=== PATIENT | male | born 1990 | race Two or more races ===

== ENCOUNTER 2021-07-31 21:23 | Emergency (ER) | payer OTHER ==
[~2021-07-31] VITALS: Ht 167.6 cm; Wt 72.7 kg
[2021-07-31 23:03] VITALS: BP 121/80
== END 2021-07-31 23:14 | disposition home or self-care (01) ==
LOC: EMS 21:27
DX: F32.9 Major depressive disorder, single episode, unspecified (principal)
CPT/HCPCS: 99284; Z7502

== ENCOUNTER 2021-08-01 03:42 | Inpatient (IN) | payer OTHER ==
[~2021-08-01] VITALS: Ht 167.6 cm; Wt 72.1 kg
[2021-08-01 08:53] LABS: EOSINOPHILS % (AUTO) 1.6 % (1.0-6.0); HEMATOCRIT 43.9 % (41-53); LYMPHOCYTES # (AUTO) 2.3 K/uL (1.0-4.8); LYMPHOCYTES % (AUTO) 42.8 % (22.0-44.0); MEAN CORPUSCULAR HEMOGLOBIN 31.5 pg (26.0-34.0); MEAN CORPUSCULAR HGB CONC 34.3 G/dL (31.0-37.0); MEAN CORPUSCULAR VOLUME 92 fL (80-100); MONOCYTES # (AUTO) 0.5 K/uL (0.1-1.0); MONOCYTES % (AUTO) 9.5 % (2.0-9.0); NEUTROPHILS # (AUTO) 2.4 K/uL (1.8-7.7); NEUTROPHILS % (AUTO) 45.1 % (40.0-70.0); PLATELET COUNT (AUTO) 274 K/uL (150-450); RED BLOOD CELL COUNT(AUTO) 4.77 MIL/uL (4.50-5.90); RED CELL DISTRIBUTION WIDTH 13.8 % (11.5-14.5)
[2021-08-01 08:58] LABS: ANION GAP 6 mmol/L (8-16); CALCIUM, TOTAL 9.1 mg/dL (8.8-10.5); CARBON DIOXIDE 29 mmol/L (22-29); CHLORIDE 104 mmol/L (98-107); CREATININE 0.74 mg/dL (0.60-1.30); GLOMERULAR FILTR. RATE CALC > 60 mL/min (>60); GLUCOSE,RANDOM 93 mg/dL (70-110); POTASSIUM 4.1 mmol/L (3.5-5.1); SODIUM SERUM 139 mmol/L (136-145); UREA NITROGEN, BLOOD 15 mg/dL (7-18)
[2021-08-01 09:04] LABS: ALANINE AMINOTRANSFERASE 38 U/L (12-78); ALBUMIN 3.8 g/dL (3.4-5.0); ALKALINE PHOSPHATASE 83 U/L (46-116); ASPARTATE AMINOTRANSFERASE 27 U/L (15-37); BILIRUBIN,TOTAL 0.4 mg/dL (0.1-1.0); TOTAL PROTEIN, SERUM 7.6 g/dL (6.4-8.2)
[2021-08-01 12:00] LABS: COVID AG,FIA SOURCE NASOPHARYNGEAL
[2021-08-01 12:35] LABS: AMPHET/METH SCREEN,URINE NEGATIVE (NEGATIVE); BARBITURATE SCREEN, URINE NEGATIVE (NEGATIVE); BENZODIAZEPINES SCREEN,URINE NEGATIVE (NEGATIVE); CANNABINOID SCREEN,URINE POSITIVE (NEGATIVE); COCAINE SCREEN,URINE NEGATIVE (NEGATIVE); METHADONE SCREEN, URINE NEGATIVE (NEGATIVE); OPIATE SCREEN,URINE NEGATIVE (NEGATIVE)
[2021-08-01 12:37] LABS: PHENCYCLIDINE SCREEN,URINE NEGATIVE (NEGATIVE)
[2021-08-01 16:33] VITALS: BP 119/76
[2021-08-01 19:34] VITALS: BP 119/59
[2021-08-01] MEDS: MELATONIN 3 MG TABLET PO PRN (20:56)
[2021-08-01] MEDS ORDERED: ALBUTEROL SULFATE 2.5 MG/0.5 ML NEB SOLUTION NEB PRN (21:15)
[2021-08-01] MEDS ORDERED: ONDANSETRON HCL 4 MG/2 ML VIAL IVP PRN (21:15)
[2021-08-01] MEDS ORDERED: BISACODYL 10 MG RECTAL RECTAL SUPPOSITORY PR PRN (21:15)
[2021-08-01] MEDS ORDERED: MORPHINE SULFATE 2 MG/ML SYRINGE IVP PRN (21:15)
[2021-08-01] MEDS ORDERED: MAGNESIUM HYDROXIDE SUSPENSION 30 ML UDCUP PO PRN (21:15)
[2021-08-01] MEDS ORDERED: IPRATROPIUM BROMIDE 0.5 MG/2.5 ML NEB SOLUTION NEB PRN (21:15)
[2021-08-02] MEDS: HYDROCODONE/ACETAMINOPHEN 5-325 MG TABLET PO PRN ×3 (00:33→17:29)
[2021-08-02] MEDS: ZOLPIDEM TARTRATE 5 MG TABLET PO PRN (01:35)
[2021-08-02] MEDS: HEPARIN SODIUM,PORCINE 5,000 UNITS/ML VIAL SQ SCH ×3 (01:35→17:25)
[2021-08-02 03:59] VITALS: BP 103/61
[2021-08-02 08:05] VITALS: BP 123/71
[2021-08-02] MEDS ORDERED: PANTOPRAZOLE SODIUM 40 MG/VIAL IVP SCH (09:00)
[2021-08-02] MEDS: DOCUSATE SODIUM 100 MG CAPSULE PO SCH ×2 (09:43→19:52)
[2021-08-02 12:53] VITALS: BP 93/67
[2021-08-02 16:06] VITALS: BP 130/96
[2021-08-02] MEDS: ACETAMINOPHEN 325 MG TABLET PO PRN (19:53)
[2021-08-02] MEDS: OLANZapine 10 MG TABLET PO SCH (19:53)
[2021-08-02] MEDS: MELATONIN 3 MG TABLET PO PRN (20:02)
[2021-08-02 20:38] VITALS: BP 125/77
[2021-08-03] MEDS: HEPARIN SODIUM,PORCINE 5,000 UNITS/ML VIAL SQ SCH ×4 (00:11→23:16)
[2021-08-03 05:00] VITALS: BP 119/66
[2021-08-03] MEDS: DOCUSATE SODIUM 100 MG CAPSULE PO SCH ×2 (08:16→19:59)
[2021-08-03] MEDS: PANTOPRAZOLE SODIUM 40 MG DR TABLET PO SCH (08:16)
[2021-08-03] MEDS: OLANZapine 10 MG TABLET PO SCH ×2 (08:16→19:59)
[2021-08-03 08:30] VITALS: BP 122/93
[2021-08-03] MEDS: ACETAMINOPHEN 325 MG TABLET PO PRN ×2 (12:27→20:00)
[2021-08-03 15:41] VITALS: BP 107/68
[2021-08-03 19:45] VITALS: BP 113/71
[2021-08-03] MEDS: MELATONIN 3 MG TABLET PO PRN (20:00)
[2021-08-04 04:40] VITALS: BP 112/68
[2021-08-04] MEDS: ACETAMINOPHEN 325 MG TABLET PO PRN ×3 (05:18→23:42)
[2021-08-04 07:34] VITALS: BP 113/65
[2021-08-04] MEDS: DOCUSATE SODIUM 100 MG CAPSULE PO SCH ×2 (08:01→19:54)
[2021-08-04] MEDS: HEPARIN SODIUM,PORCINE 5,000 UNITS/ML VIAL SQ SCH ×3 (08:02→23:42)
[2021-08-04] MEDS: PANTOPRAZOLE SODIUM 40 MG DR TABLET PO SCH (08:02)
[2021-08-04] MEDS: OLANZapine 10 MG TABLET PO SCH ×2 (08:02→19:54)
[2021-08-04 16:00] VITALS: BP 121/90
[2021-08-04] MEDS ORDERED: ONDANSETRON HCL 4 MG TABLET PO PRN (16:45)
[2021-08-04] MEDS: HYDROCODONE/ACETAMINOPHEN 5-325 MG TABLET PO PRN (19:58)
[2021-08-04] MEDS: ZOLPIDEM TARTRATE 5 MG TABLET PO PRN (19:58)
[2021-08-04 20:35] VITALS: BP 132/81
[2021-08-05 05:30] VITALS: BP 125/77
[2021-08-05] MEDS: OLANZapine 10 MG TABLET PO SCH ×2 (07:50→19:43)
[2021-08-05] MEDS: PANTOPRAZOLE SODIUM 40 MG DR TABLET PO SCH (07:50)
[2021-08-05] MEDS: DOCUSATE SODIUM 100 MG CAPSULE PO SCH ×2 (07:50→19:43)
[2021-08-05] MEDS: HEPARIN SODIUM,PORCINE 5,000 UNITS/ML VIAL SQ SCH ×2 (07:51→17:11)
[2021-08-05] MEDS: HYDROCODONE/ACETAMINOPHEN 5-325 MG TABLET PO PRN ×2 (08:27→18:28)
[2021-08-05 08:57] VITALS: BP 142/98
[2021-08-05 13:25] VITALS: BP 135/71
[2021-08-05] MEDS ORDERED: OLAN10TA74 PO (15:13)
[2021-08-05 17:45] VITALS: BP 144/88
== END 2021-08-05 20:30 | DRG 885 ==
LOC: EMS 03:43 → 6S 14:38
PROVIDERS: ADMIT Hospitalist; ATTEND Hospitalist
DX: F20.0 Paranoid schizophrenia (principal); R45.851 Suicidal ideations; F12.90 Cannabis use, unspecified, uncomplicated; F32.A Depression, unspecified; F17.210 Nicotine dependence, cigarettes, uncomplicated; Z20.822 Contact with and (suspected) exposure to COVID-19; F99 Mental disorder, not otherwise specified
CPT/HCPCS: 80053; 85025; 99285; G0480; J1644

== ENCOUNTER 2021-09-30 00:56 | Inpatient (IN) | payer OTHER ==
[~2021-09-30] VITALS: Ht 167.6 cm; Wt 78.2 kg
[~2021-09-30 00:56] MED LIST: OLAN10TA74 PO
[2021-09-30] MEDS ORDERED: BUSP10TA23 PO (01:32)
[2021-09-30] MEDS ORDERED: DIVA-80 PO (01:32)
[2021-09-30] MEDS ORDERED: OLAN10TA74 PO ×2 (01:33)
[2021-09-30 01:38] LABS: BASOPHILS % (AUTO) 0.6 % (0.0-2.0); HEMATOCRIT 39.7 % (41-53); HEMOGLOBIN 13.3 g/dL (13.5-17.5); LYMPHOCYTES # (AUTO) 1.8 K/uL (1.0-4.8); MEAN CORPUSCULAR HEMOGLOBIN 30.9 pg (26.0-34.0); MEAN CORPUSCULAR HGB CONC 33.5 G/dL (31.0-37.0); MEAN CORPUSCULAR VOLUME 92 fL (80-100); MONOCYTES # (AUTO) 0.5 K/uL (0.1-1.0); NEUTROPHILS # (AUTO) 3.2 K/uL (1.8-7.7); NEUTROPHILS % (AUTO) 57.4 % (40.0-70.0); PLATELET COUNT (AUTO) 212 K/uL (150-450); RED CELL DISTRIBUTION WIDTH 13.7 % (11.5-14.5)
[2021-09-30 01:46] LABS: ANION GAP 6 mmol/L (8-16); CALCIUM, TOTAL 8.8 mg/dL (8.8-10.5); CARBON DIOXIDE 29 mmol/L (22-29); CHLORIDE 106 mmol/L (98-107); CREATININE 0.91 mg/dL (0.60-1.30); GLOMERULAR FILTR. RATE CALC > 60 mL/min (>60); GLUCOSE,RANDOM 93 mg/dL (70-110); POTASSIUM 4.2 mmol/L (3.5-5.1); SODIUM SERUM 141 mmol/L (136-145); UREA NITROGEN, BLOOD 9 mg/dL (7-18)
[2021-09-30 01:52] LABS: ALANINE AMINOTRANSFERASE 29 U/L (12-78); ALBUMIN 3.9 g/dL (3.4-5.0); ALKALINE PHOSPHATASE 71 U/L (46-116); ASPARTATE AMINOTRANSFERASE 16 U/L (15-37); BILIRUBIN,TOTAL 0.2 mg/dL (0.1-1.0); TOTAL PROTEIN, SERUM 7.4 g/dL (6.4-8.2)
[2021-09-30 02:24] LABS: AMPHET/METH SCREEN,URINE NEGATIVE (NEGATIVE); BARBITURATE SCREEN, URINE NEGATIVE (NEGATIVE); BENZODIAZEPINES SCREEN,URINE NEGATIVE (NEGATIVE); CANNABINOID SCREEN,URINE NEGATIVE (NEGATIVE); COCAINE SCREEN,URINE NEGATIVE (NEGATIVE); METHADONE SCREEN, URINE NEGATIVE (NEGATIVE); OPIATE SCREEN,URINE NEGATIVE (NEGATIVE)
[2021-09-30 02:25] LABS: PHENCYCLIDINE SCREEN,URINE NEGATIVE (NEGATIVE)
[2021-09-30] MEDS ORDERED: ACETAMINOPHEN 325 MG TABLET PO ONE (04:00)
[2021-09-30] MEDS ORDERED: ONDANSETRON HCL 4 MG/2 ML VIAL IVP PRN (05:15)
[2021-09-30] MEDS ORDERED: 0.9% SODIUM CHLORIDE 10 ML SYRINGE IVP PRN (05:15)
[2021-09-30] MEDS ORDERED: ACETAMINOPHEN 325 MG TABLET PO PRN (05:15)
[2021-09-30 05:39] VITALS: BP 141/90
[2021-09-30] MEDS ORDERED: KETOROLAC TROMETHAMINE 15 MG/ML VIAL IVP ONE (07:00)
[2021-09-30 07:42] VITALS: BP 123/71
[2021-09-30] MEDS: NICOTINE 21 MG/24 HOUR PATCH TD SCH (08:54)
[2021-09-30 12:07] VITALS: BP 114/66
[2021-09-30 15:26] VITALS: BP 112/77
[2021-09-30] MEDS: OLANZapine 7.5 MG TABLET PO SCH ×2 (15:45→20:20)
[2021-09-30] MEDS: DIVALPROEX SODIUM 500 MG ER TABLET PO SCH ×2 (15:45→20:20)
[2021-09-30 19:20] VITALS: BP 104/68
[2021-09-30 23:45] VITALS: BP 98/56
[2021-10-01] MEDS: ALPRAZolam 1 MG TABLET PO PRN ×2 (01:22→18:08)
[2021-10-01 04:10] VITALS: BP 112/68
[2021-10-01 07:37] VITALS: BP 115/61
[2021-10-01] MEDS: OLANZapine 7.5 MG TABLET PO SCH ×2 (08:52→20:20)
[2021-10-01] MEDS: NICOTINE 21 MG/24 HOUR PATCH TD SCH (08:52)
[2021-10-01] MEDS: DIVALPROEX SODIUM 500 MG ER TABLET PO SCH ×2 (08:52→20:20)
[2021-10-01 11:24] VITALS: BP 113/68
[2021-10-01] MEDS ORDERED: ACETAMINOPHEN 650 MG/20.3 ML SOLUTION UDCUP PO PRN (15:45)
[2021-10-01 15:53] VITALS: BP 120/81
[2021-10-01] MEDS: ACETAMINOPHEN 325 MG TABLET PO PRN (15:58)
[2021-10-01 19:16] VITALS: BP 120/67
[2021-10-01 23:51] VITALS: BP 107/64
[2021-10-02 04:05] VITALS: BP 113/63
[2021-10-02 07:49] VITALS: BP 113/69
[2021-10-02] MEDS: DIVALPROEX SODIUM 500 MG ER TABLET PO SCH ×2 (08:20→20:37)
[2021-10-02] MEDS: OLANZapine 7.5 MG TABLET PO SCH ×2 (08:20→20:37)
[2021-10-02] MEDS: NICOTINE 21 MG/24 HOUR PATCH TD SCH (08:26)
[2021-10-02] MEDS: ALPRAZolam 1 MG TABLET PO PRN (09:46)
[2021-10-02 11:36] VITALS: BP 106/57
[2021-10-02 15:32] VITALS: BP 117/73
[2021-10-02 20:35] VITALS: BP 122/71
[2021-10-02] MEDS: ACETAMINOPHEN 325 MG TABLET PO PRN (20:37)
[2021-10-02] MEDS: ALPRAZolam 0.5 MG TABLET PO PRN (23:08)
[2021-10-03 05:10] VITALS: BP 122/78
[2021-10-03 07:37] VITALS: BP 123/74
[2021-10-03] MEDS: OLANZapine 7.5 MG TABLET PO SCH ×2 (08:56→20:08)
[2021-10-03] MEDS: DIVALPROEX SODIUM 500 MG ER TABLET PO SCH ×2 (08:56→20:08)
[2021-10-03] MEDS: NICOTINE 21 MG/24 HOUR PATCH TD SCH (08:58)
[2021-10-03 15:37] VITALS: BP 121/68
[2021-10-03 19:54] VITALS: BP 120/71
[2021-10-03] MEDS: ALPRAZolam 0.5 MG TABLET PO PRN (20:08)
[2021-10-04] MEDS: ACETAMINOPHEN 325 MG TABLET PO PRN ×3 (00:31→22:39)
[2021-10-04 04:18] VITALS: BP 119/77
[2021-10-04 07:52] VITALS: BP 104/62
[2021-10-04] MEDS: DIVALPROEX SODIUM 500 MG ER TABLET PO SCH ×2 (09:07→20:27)
[2021-10-04] MEDS: OLANZapine 7.5 MG TABLET PO SCH ×2 (09:08→20:27)
[2021-10-04] MEDS: NICOTINE 21 MG/24 HOUR PATCH TD SCH (09:08)
[2021-10-04 20:00] VITALS: BP 104/67
[2021-10-04] MEDS: ALPRAZolam 0.5 MG TABLET PO PRN (20:27)
[2021-10-05 04:56] VITALS: BP 142/75
[2021-10-05 07:53] VITALS: BP 111/63
[2021-10-05] MEDS: NICOTINE 21 MG/24 HOUR PATCH TD SCH (08:29)
[2021-10-05] MEDS: DIVALPROEX SODIUM 500 MG ER TABLET PO SCH (08:29)
[2021-10-05] MEDS: OLANZapine 7.5 MG TABLET PO SCH (08:29)
[2021-10-06] MEDS ORDERED: BUSP10TA23 PO (22:51)
== END 2021-10-05 16:30 | DRG 885 ==
LOC: EMS 01:00 → 5N 05:16 → 6S 10-02 14:45 → 6N 10-02 14:50 → 6S 10-02 16:46
PROVIDERS: ADMIT Hospitalist; ATTEND Hospitalist
DX: F25.0 Schizoaffective disorder, bipolar type (principal); R45.851 Suicidal ideations; F41.9 Anxiety disorder, unspecified; F32.A Depression, unspecified; F17.210 Nicotine dependence, cigarettes, uncomplicated; F19.10 Other psychoactive substance abuse, uncomplicated; Z71.6 Tobacco abuse counseling
CPT/HCPCS: 80053; 85025; 99285; G0480; J1885

== ENCOUNTER 2021-10-06 21:50 | Inpatient (IN) | payer OTHER ==
[~2021-10-06] VITALS: Ht 167.6 cm; Wt 77.3 kg
[~2021-10-06 21:50] MED LIST changes: +DIVA-80 PO
[2021-10-06] MEDS ORDERED: BUSP10TA23 PO (22:51)
[2021-10-06 23:08] LABS: BASOPHILS % (AUTO) 0.6 % (0.0-2.0); EOSINOPHILS % (AUTO) 1.1 % (1.0-6.0); HEMATOCRIT 40.2 % (41-53); HEMOGLOBIN 13.4 g/dL (13.5-17.5); LYMPHOCYTES # (AUTO) 1.2 K/uL (1.0-4.8); LYMPHOCYTES % (AUTO) 24.3 % (22.0-44.0); MEAN CORPUSCULAR HEMOGLOBIN 30.9 pg (26.0-34.0); MEAN CORPUSCULAR HGB CONC 33.4 G/dL (31.0-37.0); MEAN CORPUSCULAR VOLUME 93 fL (80-100); MONOCYTES # (AUTO) 0.5 K/uL (0.1-1.0); MONOCYTES % (AUTO) 9.8 % (2.0-9.0); NEUTROPHILS % (AUTO) 64.2 % (40.0-70.0); PLATELET COUNT (AUTO) 205 K/uL (150-450); RED BLOOD CELL COUNT(AUTO) 4.34 MIL/uL (4.50-5.90); RED CELL DISTRIBUTION WIDTH 13.7 % (11.5-14.5)
[2021-10-06 23:17] LABS: ANION GAP 2 mmol/L (8-16); CALCIUM, TOTAL 8.4 mg/dL (8.8-10.5); CARBON DIOXIDE 31 mmol/L (22-29); CHLORIDE 106 mmol/L (98-107); CREATININE 0.99 mg/dL (0.60-1.30); GLOMERULAR FILTR. RATE CALC > 60 mL/min (>60); GLUCOSE,RANDOM 104 mg/dL (70-110); POTASSIUM 4.6 mmol/L (3.5-5.1); SODIUM SERUM 139 mmol/L (136-145); UREA NITROGEN, BLOOD 15 mg/dL (7-18)
[2021-10-06 23:22] LABS: ALANINE AMINOTRANSFERASE 18 U/L (12-78); ALBUMIN 3.7 g/dL (3.4-5.0); ALKALINE PHOSPHATASE 64 U/L (46-116); ASPARTATE AMINOTRANSFERASE 10 U/L (15-37); BILIRUBIN,TOTAL 0.1 mg/dL (0.1-1.0); TOTAL PROTEIN, SERUM 7.5 g/dL (6.4-8.2)
[2021-10-06 23:29] LABS: AMPHET/METH SCREEN,URINE NEGATIVE (NEGATIVE); BARBITURATE SCREEN, URINE NEGATIVE (NEGATIVE); BENZODIAZEPINES SCREEN,URINE NEGATIVE (NEGATIVE); CANNABINOID SCREEN,URINE NEGATIVE (NEGATIVE); COCAINE SCREEN,URINE NEGATIVE (NEGATIVE); METHADONE SCREEN, URINE NEGATIVE (NEGATIVE); OPIATE SCREEN,URINE NEGATIVE (NEGATIVE)
[2021-10-06 23:30] LABS: PHENCYCLIDINE SCREEN,URINE NEGATIVE (NEGATIVE)
[2021-10-06 23:44] LABS: COVID AG,FIA SOURCE NASAL SWAB
[2021-10-06] MEDS ORDERED: PETROLATUM,WHITE 28 GM JELLY TP PRN (23:45)
[2021-10-06] MEDS ORDERED: MAG HYDROX/AL HYDROX/SIMETH ES 30 ML SUSPENSION UDCUP PO PRN (23:45)
[2021-10-06] MEDS ORDERED: CloNIDine HCL 0.1 MG TABLET PO PRN (23:45)
[2021-10-06] MEDS ORDERED: NICOTINE 14 MG/24 HOUR PATCH TD PRN (23:45)
[2021-10-06] MEDS ORDERED: ONDANSETRON HCL 4 MG TABLET PO PRN (23:45)
[2021-10-06] MEDS ORDERED: LOPERAMIDE HCL 2 MG CAPSULE PO PRN (23:45)
[2021-10-06] MEDS ORDERED: ALBUTEROL SULFATE HFA 90 MCG/PUFF 8 GM INHALER IH PRN (23:45)
[2021-10-06] MEDS ORDERED: MAGNESIUM HYDROXIDE SUSPENSION 30 ML UDCUP PO PRN (23:45)
[2021-10-06] MEDS ORDERED: DOCUSATE SODIUM 100 MG CAPSULE PO PRN (23:45)
[2021-10-06] MEDS ORDERED: GuaiFENesin/D-METHORPHAN [SUGAR-FREE] 200-20MG/10 ML SYRUP UDCUP PO PRN (23:45)
[2021-10-07 01:15] VITALS: BP 117/85
[2021-10-07] MEDS: ACETAMINOPHEN 325 MG TABLET PO PRN ×2 (01:15→16:11)
[2021-10-07] MEDS: IBUPROFEN 400 MG TABLET PO PRN ×2 (02:40→18:04)
[2021-10-07 04:50] VITALS: BP 104/57
[2021-10-07 08:04] VITALS: BP 106/57
[2021-10-07] MEDS: OLANZapine 5 MG TABLET PO SCH (12:24)
[2021-10-07] MEDS ORDERED: OLAN7.5T22 PO (12:27)
[2021-10-07 16:23] VITALS: BP 99/66
[2021-10-07 20:00] VITALS: BP 125/66
[2021-10-07] MEDS: OLANZapine 7.5 MG TABLET PO SCH (20:03)
[2021-10-07] MEDS ORDERED: ALPRAZolam 0.5 MG TABLET PO PRN (21:15)
[2021-10-08 05:06] VITALS: BP 100/62
[2021-10-08] MEDS: ACETAMINOPHEN 325 MG TABLET PO PRN (06:16)
[2021-10-08 08:22] VITALS: BP 113/71
[2021-10-08] MEDS: OLANZapine 5 MG TABLET PO SCH (09:32)
[2021-10-08] MEDS ORDERED: QUEtiapine FUMARATE 25 MG TABLET PO PRN (11:00)
[2021-10-08] MEDS: BusPIRone HCL 10 MG TABLET PO SCH ×2 (11:15→20:07)
[2021-10-08] MEDS: DIVALPROEX SODIUM 500 MG ER TABLET PO SCH ×2 (11:15→20:07)
[2021-10-08] MEDS: IBUPROFEN 400 MG TABLET PO PRN (14:18)
[2021-10-08 19:55] VITALS: BP 124/72
[2021-10-08] MEDS: OLANZapine 7.5 MG TABLET PO SCH (20:08)
[2021-10-08] MEDS ORDERED: LORazepam 2 MG/ML VIAL IVP PRN (21:45)
[2021-10-09] MEDS: ACETAMINOPHEN 325 MG TABLET PO PRN ×2 (02:18→18:07)
[2021-10-09 05:00] VITALS: BP 126/75
[2021-10-09 08:50] VITALS: BP 127/82
[2021-10-09] MEDS: OLANZapine 5 MG TABLET PO SCH (09:04)
[2021-10-09] MEDS: DIVALPROEX SODIUM 500 MG ER TABLET PO SCH (09:04)
[2021-10-09] MEDS: BusPIRone HCL 10 MG TABLET PO SCH (09:04)
[2021-10-09] MEDS ORDERED: OLAN5TAB52 PO (15:05)
[2021-10-09] MEDS ORDERED: OLAN7.5T22 PO (15:05)
[2021-10-09] MEDS ORDERED: ACET325S20 PR (15:06)
[2021-10-09] MEDS ORDERED: ACET-2247 PO (15:07)
[2021-10-09] MEDS ORDERED: DOCU-385 PO (15:08)
[2021-10-09] MEDS ORDERED: IBUP-1506 PO (15:09)
[2021-10-09] MEDS ORDERED: LOPE2 PO (15:10)
[2021-10-09] MEDS ORDERED: MAG30ORA19 PO (15:12)
[2021-10-09] MEDS ORDERED: MAGN-160 PO (15:13)
[2021-10-09] MEDS ORDERED: NICO-703 TD (15:13)
[2021-10-09 16:00] VITALS: BP 122/76
== END 2021-10-09 20:02 | DRG 885 ==
LOC: EMS 21:53 → 6S 10-07 00:10
PROVIDERS: ADMIT Internal Medicine; ATTEND Internal Medicine
DX: F25.1 Schizoaffective disorder, depressive type (principal); R45.851 Suicidal ideations; F17.200 Nicotine dependence, unspecified, uncomplicated; D64.9 Anemia, unspecified; F10.10 Alcohol abuse, uncomplicated; Z91.14 Patient's other noncompliance with medication regimen; Z91.51 Personal history of suicidal behavior; F41.0 Panic disorder [episodic paroxysmal anxiety]
CPT/HCPCS: 80053; 84443; 85025; 87081; 99285; G0480; J2060

== ENCOUNTER 2023-02-27 16:44 | Inpatient (IN) | payer OTHER ==
[~2023-02-27] VITALS: Ht 167.6 cm; Wt 105.0 kg
[~2023-02-27 16:44] MED LIST changes: +ACET-2247 PO; +BUSP10TA23 PO; -DIVA-80 PO; +DIVA500T53 PO; +DOCU-385 PO; +IBUP-1506 PO; +LOPE-232 PO; +MAG30ORA19 PO; +MAGN-169 PO; +NICO-703 TD; -OLAN10TA74 PO; +OLAN5TAB52 PO; +OLAN7.5T22 PO; +RISP2TAB45 PO
[2023-02-27 17:52] LABS: BASOPHILS % (AUTO) 0.6 % (0.0-2.0); HEMATOCRIT 46.3 % (41-53); HEMOGLOBIN 15.3 g/dL (13.5-17.5); LYMPHOCYTES # (AUTO) 2.5 K/uL (1.0-4.8); LYMPHOCYTES % (AUTO) 28.4 % (22.0-44.0); MEAN CORPUSCULAR VOLUME 91 fL (80-100); MONOCYTES # (AUTO) 0.6 K/uL (0.1-1.0); MONOCYTES % (AUTO) 6.8 % (2.0-9.0); NEUTROPHILS # (AUTO) 5.5 K/uL (1.8-7.7); NEUTROPHILS % (AUTO) 63.2 % (40.0-70.0); PLATELET COUNT (AUTO) 283 K/uL (150-450); RED CELL DISTRIBUTION WIDTH 13.2 % (11.5-14.5); WHITE BLOOD COUNT (AUTO) 8.7 K/uL (4.5-11.0)
[2023-02-27 18:08] LABS: ALCOHOL, BLOOD (SERUM) < 3 mg/dL (0-10)
[2023-02-27 18:31] LABS: ANION GAP 11 mmol/L (8-16); CALCIUM, TOTAL 8.9 mg/dL (8.8-10.5); CARBON DIOXIDE 25 mmol/L (22-29); CHLORIDE 103 mmol/L (98-107); CREATININE 0.98 mg/dL (0.60-1.30); GLOMERULAR FILTR. RATE CALC > 60 mL/min (>60); GLUCOSE,RANDOM 113 mg/dL (70-110); POTASSIUM 3.9 mmol/L (3.5-5.1); SODIUM SERUM 139 mmol/L (136-145); UREA NITROGEN, BLOOD 16 mg/dL (7-18)
[2023-02-27 18:34] LABS: ALANINE AMINOTRANSFERASE 44 U/L (12-78); ALBUMIN 3.8 g/dL (3.4-5.0); ALKALINE PHOSPHATASE 90 U/L (46-116); ASPARTATE AMINOTRANSFERASE 22 U/L (15-37); BILIRUBIN,TOTAL 0.2 mg/dL (0.1-1.0); TOTAL PROTEIN, SERUM 7.9 g/dL (6.4-8.2)
[2023-02-27] MEDS ORDERED: ACETAMINOPHEN 325 MG TABLET PO PRN (18:45)
[2023-02-27] MEDS ORDERED: ONDANSETRON HCL 4 MG/2 ML VIAL IVP PRN (18:45)
[2023-02-27] MEDS ORDERED: 0.9% SODIUM CHLORIDE 10 ML SYRINGE IVP PRN (18:45)
[2023-02-28 01:33] LABS: COVID AG,FIA SOURCE NASOPHARYNGEAL
[2023-02-28 01:51] LABS: SARS-COV2 (COVID) ANTIGEN,FIA Negative (Negative)
[2023-02-28 09:51] VITALS: BP 129/69; PULSE 82; RESP 20; TEMP 98.3
[2023-02-28 10:19] LABS: PH,URINE DRUG SCREEN 5.5 (5.0-8.0)
[2023-02-28 10:24] LABS: ALCOHOL, URINE DRUG SCREEN NEGATIVE (NEGATIVE); AMPHET/METH SCREEN,URINE NEGATIVE (NEGATIVE); BARBITURATE SCREEN, URINE NEGATIVE (NEGATIVE); BENZODIAZEPINES SCREEN,URINE NEGATIVE (NEGATIVE); CANNABINOID SCREEN,URINE NEGATIVE (NEGATIVE); COCAINE SCREEN,URINE NEGATIVE (NEGATIVE); METHADONE SCREEN, URINE NEGATIVE (NEGATIVE); OPIATE SCREEN,URINE NEGATIVE (NEGATIVE); PHENCYCLIDINE SCREEN,URINE NEGATIVE (NEGATIVE)
[2023-02-28] MEDS ORDERED: ONDANSETRON HCL 4 MG/2 ML VIAL IVP PRN (10:30)
[2023-02-28] MEDS ORDERED: NICOTINE 14 MG/24 HOUR PATCH TD PRN (10:45)
[2023-02-28] MEDS ORDERED: DOCUSATE SODIUM 100 MG CAPSULE PO PRN (10:45)
[2023-02-28] MEDS ORDERED: MAG HYDROX/AL HYDROX/SIMETH ES 30 ML SUSPENSION UDCUP PO PRN (10:45)
[2023-02-28] MEDS ORDERED: LOPERAMIDE HCL 2 MG CAPSULE PO PRN (10:45)
[2023-02-28] MEDS ORDERED: MAGNESIUM HYDROXIDE SUSPENSION 30 ML UDCUP PO PRN (10:45)
[2023-02-28] MEDS: BusPIRone HCL 10 MG TABLET PO SCH ×2 (10:50→20:25)
[2023-02-28] MEDS: DIVALPROEX SODIUM 500 MG ER TABLET PO SCH ×2 (10:50→20:25)
[2023-02-28] MEDS: OLANZapine 5 MG TABLET PO SCH (11:49)
[2023-02-28] MEDS: HEPARIN SODIUM,PORCINE 5,000 UNITS/ML VIAL SQ SCH (15:46)
[2023-02-28 16:29] VITALS: BP 103/73; PULSE 87; RESP 20; TEMP 98.4
[2023-02-28 16:46] LABS: GLUCOMETER DEV NAME(LOC) 6N.2B; GLUCOSE,POINT OF CARE 111 MG/DL (70-110)
[2023-02-28 18:33] VITALS: BP 119/77; PULSE 83; RESP 18; TEMP 97.8
[2023-02-28 19:50] VITALS: BP 117/78; PULSE 92; RESP 16; TEMP 97.9
[2023-02-28] MEDS: OLANZapine 7.5 MG TABLET PO SCH (20:25)
[2023-02-28] MEDS: DOCUSATE SODIUM 100 MG CAPSULE PO SCH (20:25)
[2023-02-28] MEDS: RisperiDONE 2 MG TABLET PO SCH (20:25)
[2023-03-01] MEDS: HEPARIN SODIUM,PORCINE 5,000 UNITS/ML VIAL SQ SCH ×4 (00:18→23:08)
[2023-03-01 04:00] VITALS: BP 107/74; PULSE 84; RESP 16; TEMP 97.9
[2023-03-01 07:00] VITALS: BP 118/75; PULSE 98; RESP 17; TEMP 99.1
[2023-03-01] MEDS: BusPIRone HCL 10 MG TABLET PO SCH ×2 (08:45→19:55)
[2023-03-01] MEDS: DIVALPROEX SODIUM 500 MG ER TABLET PO SCH ×2 (08:45→19:55)
[2023-03-01] MEDS: OLANZapine 5 MG TABLET PO SCH (08:45)
[2023-03-01] MEDS: RisperiDONE 2 MG TABLET PO SCH ×2 (08:45→19:55)
[2023-03-01] MEDS: DOCUSATE SODIUM 100 MG CAPSULE PO SCH ×2 (08:54→19:51)
[2023-03-01] MEDS: ACETAMINOPHEN 325 MG TABLET PO PRN (10:29)
[2023-03-01 13:46] LABS: HEMATOCRIT 43.7 % (41-53); HEMOGLOBIN 14.7 g/dL (13.5-17.5)
[2023-03-01 19:50] VITALS: BP 115/66; PULSE 102; RESP 16; TEMP 97.5
[2023-03-01] MEDS: OLANZapine 7.5 MG TABLET PO SCH (19:55)
[2023-03-02 04:25] VITALS: BP 121/79; PULSE 81; RESP 16; TEMP 97.2
[2023-03-02 08:00] VITALS: BP 107/64; PULSE 85; RESP 20; TEMP 98.2
[2023-03-02] MEDS: HEPARIN SODIUM,PORCINE 5,000 UNITS/ML VIAL SQ SCH ×3 (08:09→23:06)
[2023-03-02] MEDS: DIVALPROEX SODIUM 500 MG ER TABLET PO SCH ×2 (08:09→20:09)
[2023-03-02] MEDS: RisperiDONE 2 MG TABLET PO SCH ×2 (08:09→20:09)
[2023-03-02] MEDS: DOCUSATE SODIUM 100 MG CAPSULE PO SCH ×2 (08:09→20:10)
[2023-03-02] MEDS: OLANZapine 10 MG TABLET PO SCH (08:09)
[2023-03-02] MEDS: BusPIRone HCL 10 MG TABLET PO SCH ×2 (08:09→20:09)
[2023-03-02 16:00] VITALS: BP 125/73; PULSE 71; RESP 20; TEMP 98.8
[2023-03-02] MEDS: ACETAMINOPHEN 325 MG TABLET PO PRN ×2 (16:13→20:21)
[2023-03-02 20:05] VITALS: BP 107/72; PULSE 86; RESP 16; TEMP 97.8
[2023-03-02] MEDS: OLANZapine 7.5 MG TABLET PO SCH (20:09)
[2023-03-03 04:40] VITALS: BP 90/72; PULSE 16; PULSE 78; RESP 16; TEMP 98.2
[2023-03-03] MEDS: HEPARIN SODIUM,PORCINE 5,000 UNITS/ML VIAL SQ SCH ×2 (07:55→15:54)
[2023-03-03] MEDS: BusPIRone HCL 10 MG TABLET PO SCH ×2 (07:56→19:21)
[2023-03-03] MEDS: OLANZapine 10 MG TABLET PO SCH (07:56)
[2023-03-03] MEDS: DIVALPROEX SODIUM 500 MG ER TABLET PO SCH ×2 (07:56→19:21)
[2023-03-03] MEDS: RisperiDONE 2 MG TABLET PO SCH ×2 (07:56→19:21)
[2023-03-03] MEDS: DOCUSATE SODIUM 100 MG CAPSULE PO SCH ×2 (07:56→19:21)
[2023-03-03] MEDS: ACETAMINOPHEN 325 MG TABLET PO PRN (15:59)
[2023-03-03 16:21] VITALS: BP 120/83; PULSE 86; RESP 20; TEMP 97.8
[2023-03-03] MEDS: OLANZapine 7.5 MG TABLET PO SCH (19:21)
[2023-03-03 19:38] VITALS: BP 125/81; PULSE 89; RESP 20; TEMP 97.5
== END 2023-03-03 19:50 | DRG 885 ==
LOC: EMS 16:45 → AHU 02-28 03:30 → 6S 02-28 06:00
PROVIDERS: ADMIT Internal Medicine; ATTEND Internal Medicine
DX: F25.1 Schizoaffective disorder, depressive type (principal); R45.851 Suicidal ideations; I10 Essential (primary) hypertension; F41.9 Anxiety disorder, unspecified; Z20.822 Contact with and (suspected) exposure to COVID-19; F19.11 Other psychoactive substance abuse, in remission; Z87.891 Personal history of nicotine dependence; Z79.899 Other long term (current) drug therapy
CPT/HCPCS: 70450; 80053; 80307; 82962; 85014; 85018; 85025; 99285; G0480; J1644